=== PATIENT | male | born 1995 | race American Indian/Alaskan Native ===

== ENCOUNTER 2021-11-16 23:20 | Emergency (ER) | payer SELFPAY ==
--- NOTE | 2021-11-17 07:49 | Emergency Department Report ---
ED General Adult HPI - General Chief complaint: Dizziness Stated complaint: DIZZINESS Time Seen by Provider: 11/17/21 07:45 Source: patient, EMS Mode of arrival: Stretcher Limitations: No Limitations - History of Present Illness Initial comments: cc: FATIGUE HPI: This is a 26 yo male without significant past medical history who presents with fatigue, poor appetite. For the past several days, he has had fatigue and poor appetite. At the store, he felt faint. He thinks that he blacked out. He is not vaccinated against COVID-19. He denies fever, cough, shortness of breath, loss of taste or smell. No sick contacts. He lives with his mother. 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 -: Gradual, days(s) (4 days of fatigue and poor appetite) Severity scale (0 -10): 0 Consistency: now resolved Improves with: none Worsens with: none - Related Data Allergies Allergy/AdvReac Type Severity Reaction Status Date / Time No Known Allergies Allergy Verified 11/16/21 23:39 ED Review of Systems ROS: Stated complaint: DIZZINESS Other details as noted in HPI Comment: All other systems reviewed and negative Constitutional: malaise ENT: denies: throat pain Respiratory: denies: cough, shortness of breath Cardiovascular: denies: as per HPI, chest pain ED Past Medical Hx - Past Medical History Previous Medical History?: No - Surgical History Past Surgical History?: No - Social History Smoking Status: Current Every Day Smoker Substance Use Type: Marijuana ED Physical Exam - General Limitations: No Limitations General appearance: alert, in no apparent distress - Head Head exam: Present: atraumatic, normocephalic - Eye Eye exam: Present: normal appearance - ENT ENT exam: Present: mucous membranes moist - Neck Neck exam: Present: normal inspection - Respiratory Respiratory exam: Present: normal lung sounds bilaterally. Absent: respiratory distress, wheezes, rales, rhonchi - Cardiovascular Cardiovascular Exam: Present: regular rate, normal rhythm, normal heart sounds. Absent: systolic murmur, diastolic murmur, rubs, gallop - GI/Abdominal GI/Abdominal exam: Present: soft, normal bowel sounds. Absent: distended, tenderness, guarding, rebound - Rectal Rectal exam: Present: deferred - Extremities Exam Extremities exam: Present: normal inspection - Back Exam Back exam: Present: normal inspection - Neurological Exam Neurological exam: Present: alert, oriented X3 - Psychiatric Psychiatric exam: Present: normal affect, normal mood - Skin Skin exam: Present: warm, dry, intact, normal color. Absent: rash ED Medical Decision Making - Medical Decision Making Viral syndrome suspected Covid vasovagal syncope, recommended outpatient Covid testing. Discharged home. Critical care attestation.: If time is entered above; I have spent that time in minutes in the direct care of this critically ill patient, excluding procedure time. ED Disposition Clinical Impression: Viral syndrome, Vasovagal syncope Disposition: 01 HOME / SELF CARE / HOMELESS Is pt being admited?: No Does the pt Need Aspirin: No Condition: Stable Instructions: Syncope (ED), Viral Illness, Adult Referrals: PRINCESS WAY MD [Staff Physician] - 3-5 Days Forms: Work/School Release Form(ED)
[2021-11-17 07:57] VITALS: BP 122/72
== END 2021-11-17 07:57 | disposition home or self-care (01) ==
LOC: ED 23:20
DX: B34.9 Viral infection, unspecified (principal); R55 Syncope and collapse; F17.200 Nicotine dependence, unspecified, uncomplicated; F12.90 Cannabis use, unspecified, uncomplicated
CPT/HCPCS: 99283

== ENCOUNTER 2022-01-25 00:57 | Emergency (ER) | payer SELFPAY ==
--- NOTE | 2022-01-25 01:41 | Emergency Department Report ---
ED Psych HPI - General Chief Complaint: Psych Stated Complaint: PSYCH Time Seen by Provider: 01/25/22 01:15 Source: patient, EMS Mode of arrival: Ambulatory - History of Present Illness Initial Comments: Patient is 26-year-old male with history of schizophrenia. Patient brought to the emergency room via EMS for mental health evaluation. Patient stated that he is feeling uncomfortable. Patient denied any suicidal or homicidal ideation. He also denied any auditory or visual hallucination. Patient stated that he is compliant with his medication. Patient has significant delay in answering questions. Patient is responding to internal stimuli. MD Complaint: other -: days(s) - Related Data Allergies Allergy/AdvReac Type Severity Reaction Status Date / Time No Known Allergies Allergy Verified 11/16/21 23:39 ED Review of Systems ROS: Stated complaint: PSYCH Other details as noted in HPI Comment: All other systems reviewed and negative Constitutional: denies: chills, fever Respiratory: denies: cough, shortness of breath, SOB with exertion, SOB at rest Cardiovascular: denies: chest pain, palpitations, dyspnea on exertion Gastrointestinal: denies: abdominal pain, nausea, vomiting, diarrhea Musculoskeletal: denies: back pain Neurological: denies: headache, weakness, numbness, paresthesias, confusion Psychiatric: depression. 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 Absent: tenderness, meningismus - Respiratory Respiratory exam: Present: normal lung sounds bilaterally - Cardiovascular Cardiovascular Exam: Present: regular rate, normal rhythm, normal heart sounds - GI/Abdominal GI/Abdominal exam: Present: soft, normal bowel sounds. Absent: distended, tenderness, guarding, rebound, rigid, organomegaly, mass, bruit, pulsatile mass, hernia - Extremities Exam Extremities exam: Present: normal inspection, full ROM, normal capillary refill. Absent: tenderness, pedal edema, joint swelling, calf tenderness - Back Exam Back exam: Present: normal inspection, full ROM. Absent: CVA tenderness (R), CVA tenderness (L) - Neurological Exam Neurological exam: Present: alert, oriented X3, CN II-XII intact, normal gait, reflexes normal. Absent: motor sensory deficit - Psychiatric Psychiatric exam: Present: normal mood - Skin Skin exam: Present: warm, intact, normal color ED Course Vital Signs 01/25/22 01:05 Temperature 98 F Pulse Rate 84 Respiratory 18 Rate Blood Pressure 130/84 [Right] O2 Sat by Pulse 100 Oximetry ED Medical Decision Making - Lab Data Result diagrams: 01/25/22 01:33 01/25/22 01:33 - Medical Decision Making Patient is 26-year-old male with history of schizophrenia. Patient brought to the emergency room via EMS for mental health evaluation. Patient stated that he is feeling uncomfortable. Patient denied any suicidal or homicidal ideation. He also denied any auditory or visual hallucination. Patient stated that he is compliant with his medication. Patient has significant delay in answering questions. Patient is responding to internal stimuli. Labs reviewed and is unremarkable however urinalysis and urine drug screen still pending. Patient is medically clear to be evaluated by our psychiatric team. Critical care attestation.: If time is entered above; I have spent that time in minutes in the direct care of this critically ill patient, excluding procedure time. ED Disposition Condition: Stable
[2022-01-25 01:45] LABS: Basophils % (Auto) 0.6 % (0.0-1.8); Eosinophils % (Auto) 1.1 % (0.0-4.3); Hematocrit 45.9 % (35.5-45.6); Lymphocytes # (Auto) 1.9 K/mm3 (1.2-5.4); Lymphocytes % (Auto) 45.4 % (13.4-35.0); Mean Corpuscular HGB Conc 33 % (32-34); Mean Corpuscular Volume 92 fl (84-94); Monocytes # (Auto) 0.5 K/mm3 (0.0-0.8); Monocytes % (Auto) 12.8 % (0.0-7.3); Platelet Count 174 K/mm3 (140-440); Red Blood Count 4.99 M/mm3 (3.65-5.03); Red Cell Distribution Width 12.3 % (13.2-15.2)
[2022-01-25 02:02] LABS: BUN/Creatinine Ratio 9; Blood Urea Nitrogen 9 mg/dL (9-20); Calcium 9.3 mg/dL (8.4-10.2); Hemolysis Index 25
[2022-01-25 10:41] LABS: Benzodiazepines Screen,Urine Negative; Cocaine Screen,Urine Negative; Methadone Screen,Urine Negative; Opiate Screen,Urine Negative
[2022-01-25 10:47] LABS: Calcium Oxalate Crystals,Urine 1+; Mucus,Urine 3+ /HPF
--- NOTE | 2022-01-25 10:49 | Consultation ---
History of Present Illness - Reason for Consult Consult date: 01/25/22 Reason for consult: Hallucinations - History of Present Psychiatric Illness ED Note: Patient is 26-year-old male with history of schizophrenia. Patient brought to the emergency room via EMS for mental health evaluation. Patient stated that he is feeling uncomfortable. Patient denied any suicidal or homicidal ideation. He also denied any auditory or visual hallucination. Patient stated that he is compliant with his medication. Patient has significant delay in answering questions. Patient is responding to internal stimuli. The patient is a 26 year old male with history of schizophrenia. In my encounter with the patient, he is calm and withdrawn. The patient reports that he is hearing voices and his mother called the ambulance. The patient reports that he received Abilify Maintena from [facility] last month; the patient requ esting for Haldol so he can sleep. Per nurse, [facility] states that they have not seen this patient and that he has missed 2 last scheduled appointments. The patient denies any current suicidal/homicidal ideation but admits having auditory hallucinations " voices are saying negative things." PAST PSYCHIATRIC HISTORY Diagnoses: Schizophrenia Suicide attempts or Self-harm behavior: Denies Prior psychiatric hospitalizations: Yes Substance Abuse history: Denies Previous psychiatric medications tried: Haldol Abilify Outpatient treatment: Unknown PAST MEDICAL HISTORY: None reported Family Psychiatric History: None reported or documented SOCIAL HISTORY Marital Status:Single Living Arrangements: Lives with mother Employment Status: Unemployed Access to guns/weapons: Denies Education: 12th grade History of Abuse: none reported Legal History: none REVIEW OF SYSTEMS Constitutional: Negative for weight loss ENT: Negative for stridor Respiratory: Negative for cough or hemoptysis All other systems reviewed and are negative MENTAL STATUS EXAMINATION General Appearance and Behavior: Age appropriate, not wearing appropriate clothes, fair eye contact, Cooperation: Engaged Psychomotor Behavior: Psychomotor normal Mood: confused Affect and affective range: Congruent with stated mood Thought Process: Circumstantial Thought Content: confused/ hallucination Speech: Normal tone and pace Suicidal Ideation: Denies Homicidal Ideation: Denies Hallucinations: Yes Delusions:None Insight and Judgment: Limited insight and judgment Memory: Normal Attention: divided attention impaired Orientation: Alert, oriented Assessment: (1) Schizophrenia 1013 Treatment Plan Continue home medications. Start Haldol 5mg po BID Strat Trazodone 50mg po QHS Risks, benefits and alternatives of medications discussed with the patient, questions answered and consent obtained from patient. PSYCHOTHERAPY: Supportive psychotherapy provided MEDICAL: Per primary team DELIRIUM PRECAUTIONS: Please re-orient patient frequently, keep lights on during the day, and minimize benzodiazepines and opiates as these medications could worsen patient's confusion. 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 Will follow. Thanks Thank you for the consult. Case discussed with Dr. Villafana who agrees with current disposition Medications and Allergies Medications and Allergies Allergies Allergy/AdvReac Type Severity Reaction Status Date / Time No Known Allergies Allergy Verified 11/16/21 23:39 Mental Status Exam - Vital signs Last Vital Signs Temp 97.5 F L 01/25/22 08:50 Pulse 105 H 01/25/22 08:50 Resp 18 01/25/22 08:50 BP 132/75 01/25/22 08:50 Pulse Ox 97 01/25/22 08:51 Results Result Diagrams: 01/25/22 01:33 01/25/22 01:33 Abnormal lab results 01/25/22 01/25/22 01/25/22 Range/Units 01:33 01:33 01:33 WBC 4.2 L (4.5-11.0) K/mm3 Hct 45.9 H (35.5-45.6) % RDW 12.3 L (13.2-15.2) % Lymph % (Auto) 45.4 H (13.4-35.0) % [place] % (Auto) 12.8 H (0.0-7.3) % Seg Neutrophils # 1.7 L (1.8-7.7) K/mm3 Glucose 110 H (75-100) mg/dL Salicylates < 0.3 L (2.8-20.0) mg/dL Acetaminophen (10.0-30.0) ug/mL 01/25/22 Range/Units 01:33 WBC (4.5-11.0) K/mm3 Hct (35.5-45.6) % RDW (13.2-15.2) % Lymph % (Auto) (13.4-35.0) % Redwood % (Auto) (0.0-7.3) % Seg Neutrophils # (1.8-7.7) K/mm3 Glucose (75-100) mg/dL Salicylates (2.8-20.0) mg/dL Acetaminophen 5.0 L (10.0-30.0) ug/mL All other labs normal.
[2022-01-25 10:59] LABS: Amphetamine Screen,Urine Positive; Cannabinoid Screen,Urine Positive
[2022-01-25 11:01] LABS: Bilirubin,Urine Small (Negative); Color,Urine Amber (Yellow)
[2022-01-25 11:02] LABS: Blood,Urine Negative (Negative); Ictotest,Urine Negative (Negative); Urobilinogen,Urine < 2.0 mg/dL (<2.0)
[2022-01-25] MEDS: HALOPERIDOL 5 MG TAB PO SCH ×2 (11:35→23:20)
--- NOTE | 2022-01-25 12:01 | Emergency Department Report ---
Blank Doc - Documentation Documentation: Patient continues to have hallucinations. He is hearing people screaming in the [place]. Psychiatric disposition is pending. He has been medically cleared.
[2022-01-25] MEDS ORDERED: traZODone 50 MG TAB PO SCH (22:00)
[2022-01-26] MEDS: HALOPERIDOL 5 MG TAB PO SCH (09:58)
--- NOTE | 2022-01-26 10:17 | Progress Note ---
Subjective - Reason for Consult Consult date: 01/26/22 Reason for consult: hallucinations - Chief Complaint Chief complaint: The patient was seen this morning. He reports feeling better. the patient is lucid. He report sleep and appetite as good. The patient denies any current suicidal ideation and denies hallucinations. He will follow up with [facility]. REVIEW OF SYSTEMS Constitutional: Negative for weight loss ENT: Negative for stridor Respiratory: Negative for cough or hemoptysis All other systems reviewed and are negative MENTAL STATUS EXAMINATION General Appearance and Behavior: Age appropriate, not wearing appropriate clothes, fair eye contact, Cooperation: Engaged Psychomotor Behavior: Psychomotor normal Mood: "ok" Affect and affective range: Congruent with stated mood Thought Process: Goal directed Thought Content: Reality oriented Speech: Normal tone and pace Suicidal Ideation: Denies Homicidal Ideation: Denies Hallucinations: Denies Delusions:None Insight and Judgment: Limited insight and judgment Memory: Normal Attention: divided attention impaired Orientation: Alert, oriented Assessment: (1) Schizophrenia Dc 1013 Treatment Plan Continue home medications. Continue haldol 5mg po BID Start Benztropine 0.5mg po daily Continue Trazodone 50mg po QHS Risks, benefits and alternatives of medications discussed with the patient, questions answered and consent obtained from patient. PSYCHOTHERAPY: Supportive psychotherapy provided MEDICAL: Per primary team DELIRIUM PRECAUTIONS: Please re-orient patient frequently, keep lights on during the day, and minimize benzodiazepines and opiates as these medications could worsen patient's confusion. FISHER TRAP: per primary DISPOSITION: Do not recommend acute psychiatric inpatient treatment. Automatic Spinning Lathe Operator will provide patient with psychiatric out patient resources. Will sign off. Thanks Thank you for the consult. Case discussed with Dr. Villafana who agrees with current disposition Medications and Allergies Mental Status Exam - Vital signs Last Vital Signs Temp 98.0 F 01/25/22 20:09 Pulse 91 H 01/25/22 20:09 Resp 18 01/25/22 20:09 BP 113/72 01/25/22 20:09 Pulse Ox 98 01/25/22 20:09
[2022-01-26] MEDS ORDERED: HALOPERIDOL DECANOATE 100 MG/1 ML INJ IM SCH (10:30)
--- NOTE | 2022-01-26 13:54 | Event Note ---
Patient has been cleared by psychiatric team for discharge.
[2022-01-26 14:38] VITALS: BP 111/70
== END 2022-01-26 14:39 | disposition home or self-care (01) ==
LOC: ED 00:57
DX: Z13.39 Encounter for screening examination for other mental health and behavioral disorders (principal); F12.90 Cannabis use, unspecified, uncomplicated; F20.9 Schizophrenia, unspecified; Z20.822 Contact with and (suspected) exposure to COVID-19; Z79.899 Other long term (current) drug therapy
CPT/HCPCS: 36415; 80048; 80307; 81001; 85025; 99284; U0003; 80320; G0480; J1631